=== PATIENT | male | born 1970 | race Caucasian/White ===

== ENCOUNTER 2019-06-14 10:51 | Emergency (ER) | payer SELFPAY ==
[~2019-06-14] VITALS: Ht 175.2 cm; Wt 127.2 kg
[2019-06-14] MEDS ORDERED: LISI10TA2 PO (11:25)
[2019-06-14] MEDS ORDERED: METH-313 PO (11:25)
[2019-06-14] MEDS ORDERED: PRD20T PO (11:25)
--- NOTE | 2019-06-14 11:26 | ED General ---
General Chief Complaint: General Problems/Pain Stated Complaint: PAIN IN SHOULDER/NECK Nursing Triage Note: C/O SINUS PRESSURE FOR 1 WEEK AND PAIN AND LIMITED MOVEMENT IN R ARM. Nursing Sepsis Screen: No Definite Risk Source of Information: Patient Exam Limitations: No Limitations History of Present Illness Date Seen by Provider: Jun 14, 2019 Time Seen by Provider: 11:20 Initial Comments To ER with left neck/shoulder pain for a couple of days, cannot find a comfortable position. Pain worsened with movement of the left arm. He is also very hypertensive and hasn't been taking his antihypertensive medications for quite some time. States he doesn't like doctors or needles and doesn't want any laboratory or other evaluation for this. He also has right sinus congestion for 2 weeks. Timing/Duration: 1-2 Days Severity: Moderate Allergies and Home Medications Allergies Coded Allergies: Penicillins (Verified Allergy, Unknown, 06/14/19) Home Medications Lisinopril 10 Mg Tablet, 10 MG PO DAILY Prescribed by: STEVEN DOMINGO on 06/14/19 1125 Methocarbamol 750 Mg Tablet, 750 MG PO Q4H PRN for PAIN-MODERATE (5-7) Prescribed by: STEVEN DOMINGO on 06/14/19 1125 Prednisone 20 Mg Tab, 40 MG PO DAILY Prescribed by: STEVEN DOMINGO on 06/14/19 1125 Patient Home Medication List Home Medication List Reviewed: Yes Review of Systems Review of Systems Constitutional: see HPI EENTM: see HPI Respiratory: no symptoms reported Cardiovascular: no symptoms reported Genitourinary: no symptoms reported Musculoskeletal: see HPI Skin: no symptoms reported Psychiatric/Neurological: No Symptoms Reported Hematologic/Lymphatic: No Symptoms Reported Immunological/Allergic: no symptoms reported (Vagina this year of the rat starts with) Past Zuwhjvr-Ydyxaq-Qvhowm Hx Patient Social History Alcohol Use: Occasionally Uses Alcohol Beverage of Choice: Beer Recreational Drug Use: No Smoking Status: Never a Smoker Recent Foreign Travel: No Contact w/Someone Who Travel: No Recent Infectious Disease Expo: No Past Medical History Surgeries: Yes (HERNIA) Abdominal Respiratory: No Cardiac: Yes Hypertension Neurological: No Genitourinary: No Gastrointestinal: No Musculoskeletal: No Endocrine: No HEENT: No Cancer: No Psychosocial: No Physical Exam Vital Signs Vital Signs - First Documented 06/14/19 10:58 Temp 37.1 Pulse 91 Resp 18 B/P (MAP) 180/123 (142) Pulse Ox 95 Capillary Refill : Less Than 3 Seconds Height, Weight, BMI Height: '" Weight: lbs. oz. kg; 41.00 BMI Method: General Appearance: No Apparent Distress, WD/WN, Anxious Eyes: Bilateral Eye Normal Inspection, Bilateral Eye PERRL, Bilateral Eye EOMI HEENT: PERRL/EOMI, TMs Normal Neck: Full Range of Motion, Normal Inspection Respiratory: No Accessory Muscle Use, No Respiratory Distress Cardiovascular: Regular Rate, Rhythm, Normal Peripheral Pulses Gastrointestinal: Normal Bowel Sounds, Non Tender, Soft Extremity: Normal Capillary Refill, Normal Inspection Neurologic/Psychiatric: Alert, Oriented x3 Skin: Normal Color, Warm/Dry Progress/Results/Core Measures Suspected Sepsis Recent Fever Within 48 Hours: No Infection Criteria Present: None New/Unexplained Altered Menta: No Sepsis Screen: No Definite Risk SIRS Temperature: Pulse: 91 Respiratory Rate: 18 Blood Pressure 180 /123 Mean: 142 Results/Orders My Orders Orders - STEVEN DOMINGO APRN Clonidine Tablet (Catapres Tablet) (06/14/19 11:30) Naproxen Tablet (Naprosyn Tablet) (06/14/19 11:30) Methocarbamol Tablet (Robaxin Tablet) (06/14/19 11:30) Medications Given in ED Current Medications Medications Dose Ordered Sig/Lito Route Start Time Stop Time Status Last Admin Dose Admin Clonidine HCl 0.1 mg ONCE ONCE PO 06/14/19 11:30 06/14/19 11:31 DC 06/14/19 11:29 0.1 MG Methocarbamol 750 mg ONCE ONCE PO 06/14/19 11:30 06/14/19 11:31 DC 06/14/19 11:30 750 MG Naproxen 500 mg ONCE ONCE PO 06/14/19 11:30 06/14/19 11:31 DC 06/14/19 11:30 500 MG Vital Signs/I&O 06/14/19 06/14/19 10:58 11:35 Temp 37.1 37.1 Pulse 91 91 Resp 18 18 B/P (MAP) 180/123 (142) 180/123 (142) Pulse Ox 95 95 Capillary Refill : Less Than 3 Seconds Blood Pressure Mean: 142 Departure Communication (Admissions) I discussed with him the possibility of this left-sided neck and back pain representing serious etiology including but not limited to cardiac event, aortic injury given the hypertension. He is not interested in evaluation of this with labs or CT scan. Elected to try steroids anti-inflammatory and muscle relaxer. Impression Primary Impression: Left shoulder pain Qualified Codes: M25.512 - Pain in left shoulder Additional Impression: Sinusitis Qualified Codes: J01.01 - Acute recurrent maxillary sinusitis Disposition: HOME, SELF-CARE Condition: Stable Departure-Patient Inst. Decision time for Depature: 11:23 Referrals: NO,LOCAL PHYSICIAN (PCP/Family) Primary Care Physician Patient Instructions: Sinusitis, Adult (DC) Add. Discharge Instructions: 1. Follow-up with one the providers listed. Return to ER for any worsening. Medication as directed. All discharge instructions reviewed with patient and/or family. Voiced understanding. Scripts Naproxen (Naproxen) 500 Mg Tablet 500 MG PO Q12H for Renal Colic for 3 Days, #14 TAB Prov: STEVEN DOMINGO APRN 06/14/19 Doxycycline Hyclate (Doxycycline Hyclate) 100 Mg Tablet 100 MG PO BID, #20 TAB 0 Refills Prov: STEVEN DOMINGO APRN 06/14/19 Prednisone (Prednisone) 20 Mg Tab 40 MG PO DAILY, #6 TAB 0 Refills Prov: STEVEN DOMINGO APRN 06/14/19 Methocarbamol (Robaxin-750) 750 Mg Tablet 750 MG PO Q4H PRN for PAIN-MODERATE (5-7), #30 TAB Prov: STEVEN DOMINGO APRN 06/14/19 Lisinopril (Lisinopril) 10 Mg Tablet 10 MG PO DAILY, #30 TAB Prov: STEVEN DOMINGO APRN 06/14/19 STEVEN DOMINGO APRN Jun 14, 2019 11:26
[2019-06-14] MEDS ORDERED: METHOCARBAMOL 750 MG (ROBAXIN) TAB PO ONE (11:30)
[2019-06-14] MEDS ORDERED: NAPROXEN 250 MG (NAPROSYN) TABLET PO ONE (11:30)
[2019-06-14] MEDS ORDERED: cloNIDine 0.1 MG (CATAPRES) TAB PO ONE (11:30)
[2019-06-14 11:35] VITALS: BP 180/123
--- NOTE | 2019-06-14 11:35 | NUR ---
Tawanna DOMINGO APRN AWARE OF B/P MEDS GIVEN IN ED WITH RX. PATIENT TO BE ON MED FOR HYPERTENSION CHOOSE NOT TO TAKE. PATIENT VOICED UNDERSTANDING NEED TO TAKE MEDS.
[2019-06-14] MEDS ORDERED: NAPR-915 PO (13:38)
[2019-06-14] MEDS ORDERED: DOXY100T2 PO (13:38)
== END 2019-06-14 11:35 | disposition home or self-care (01) ==
LOC: EDUNIT# 10:51 → ER 10:53
DX: M25.512 Pain in left shoulder (principal); J32.9 Chronic sinusitis, unspecified; I10 Essential (primary) hypertension; Z91.14 Patient's other noncompliance with medication regimen; Z88.0 Allergy status to penicillin
CPT/HCPCS: 99283

== ENCOUNTER 2023-03-19 16:50 | Inpatient (IN) | payer SELFPAY ==
[2023-03-19] VITALS (8 sets, daily range): BP systolic 117–170; BP diastolic 66–108
[~2023-03-19] VITALS: Ht 180.4 cm; Wt 106.6 kg
[~2023-03-19 16:50] MED LIST: DOXY100T2 PO; LISI10TA25 PO; METH-313 PO; NAPR-915 PO; PRD20T PO
[2023-03-19] MEDS ORDERED: fentaNYL INJECTION 100 MCG/2 ML VIAL ONE ×3 (17:18→18:40)
[2023-03-19] MEDS ORDERED: NS IV 1000 ML 1,000 ML IV STA (17:21)
--- NOTE | 2023-03-19 17:24 | ED Abdominal Pain ---
General Chief Complaint: Abdominal/GI Problems Stated Complaint: UMBILICAL HERNIA Nursing Triage Note: PT AMB TO RM 5 PT CO OF SEVERE ABD PAIN 10/10. PT HAS FIRM AREA AT UMBILICAL HERNIA. STATES STARTED ABOUT 2 HOURS. Source of Information: Patient Exam Limitations: No Limitations History of Present Illness Date Seen by Provider: Mar 19, 2023 Time Seen by Provider: 17:22 Initial Comments Patient is a 52-year-old male who presents to the ED for severe abdominal pain. Rates pain 10 out of 10. Started 2 hours ago. Pain radiates across the abdomen into the back. Reports nausea without vomiting. Last bowel movement was yesterday. History of an umbilical hernia. He states he is never experienced pain to this extent. History of fundoplication performed by Dr. Ding several years ago. Denies blood thinner use history of diabetes, CHF, coronary artery disease. Patient denies taking thing for pain. Patient in moderate distress on arrival. Patient has a baseball sized umbilical hernia tender with skin color changes. Concern for strangulated hernia Allergies and Home Medications Allergies Coded Allergies: Penicillins (Verified Allergy, Unknown, 06/14/19) Patient Home Medication List Home Medication List Reviewed: Yes Doxycycline Hyclate (Doxycycline Hyclate) 100 Mg Tablet, 100 MG PO BID Prescribed by: STEVEN DOMINGO on 06/14/19 1338 Lisinopril (Lisinopril) 10 Mg Tablet, 10 MG PO DAILY Prescribed by: STEVEN DOMINGO on 06/14/19 1125 Methocarbamol (Robaxin-750) 750 Mg Tablet, 750 MG PO Q4H PRN for PAIN-MODERATE (5-7) Prescribed by: STEVEN DOMINGO on 06/14/19 1125 Naproxen (Naproxen) 500 Mg Tablet, 500 MG PO Q12H Prescribed by: STEVEN DOMINGO on 06/14/19 1338 Prednisone (Prednisone) 20 Mg Tab, 40 MG PO DAILY Prescribed by: STEVEN DOMINGO on 06/14/19 1125 Review of Systems Review of Systems Constitutional: No chills, No diaphoresis, No malaise, No weakness EENTM: No Blurred Vision, No Double Vision, No Eye Pain Cardiovascular: Denies Chest Pain Gastrointestinal: Abdominal Pain; Denies Diarrhea; Nausea Genitourinary: Denies Burning, Denies Discharge, Denies Drainage, Denies Frequency Musculoskeletal: No back pain, No joint pain Skin: No change in color, No change in hair/nails All Other Systems Reviewed Negative Unless Noted: Yes Past Jyxzjqb-Fllyjx-Wvfixa Hx Patient Social History Tobacco Use?: No Substance use?: Yes Substance type: Marijuana Substance frequency: Once in a while Alcohol Use?: Yes Alcohol type: Beer Alcohol Frequency: Once in a while Past Medical History Surgery/Hospitalization HX: HIATAL HERNIA REPAIR, Surgeries: Yes (HERNIA) Abdominal Respiratory: No Cardiac: Yes Hypertension Neurological: No Genitourinary: No Gastrointestinal: No Musculoskeletal: No Endocrine: No HEENT: No Cancer: No Psychosocial: No Physical Exam Vital Signs Vital Signs - First Documented 03/19/23 17:10 Temp 35.5 Pulse 69 Resp 18 B/P (MAP) 173/101 (125) Pulse Ox 99 Capillary Refill : Less Than 3 Seconds Height/Weight/BMI Height: '" Weight: lbs. oz. kg; 41.00 BMI Method: General Appearance: WD/WN, no apparent distress HEENT: PERRL/EOMI, normal ENT inspection, TMs normal Neck: non-tender, full range of motion, supple Respiratory: chest non-tender, lungs clear, normal breath sounds, no respiratory distress, no accessory muscle use Cardiovascular: regular rate, rhythm, no edema, no gallop, no JVD Gastrointestinal: other (Baseball sized umbilical hernia. Skin color changes noted. Severe tenderness on palpation. Diminished bowel sounds) Extremities: normal range of motion, non-tender, normal inspection, no pedal edema Back: normal inspection, no CVA tenderness Neurologic/Psychiatric: socket puller II-XII nml as tested, no motor/sensory deficits, alert, normal mood/affect, oriented x 3 Skin: normal color, warm/dry Progress/Results/Core Measures Results/Orders Lab Results Laboratory Tests Test 03/19/23 17:20 03/19/23 17:32 Range/Units Sodium Level 140 135-145 MMOL/L Potassium Level 3.2 L 3.6-5.0 MMOL/L Chloride Level 107 98-107 MMOL/L Carbon Dioxide Level 21 21-32 MMOL/L Anion Gap 12 5-14 MMOL/L Blood Urea Nitrogen 7 7-18 MG/DL Creatinine 0.75 0.60-1.30 MG/DL Estimat Glomerular Filtration Rate 110 BUN/Creatinine Ratio 9 Glucose Level 115 H 70-105 MG/DL Calcium Level 8.1 L 8.5-10.1 MG/DL Corrected Calcium 8.6 8.5-10.1 MG/DL Total Bilirubin 0.7 0.1-1.0 MG/DL Aspartate Amino Transf (AST/SGOT) 18 5-34 U/L Alanine Aminotransferase (ALT/SGPT) 14 0-55 U/L Alkaline Phosphatase 65 40-136 U/L Total Protein 5.9 L 6.4-8.2 GM/DL Albumin 3.4 3.2-4.5 GM/DL Lipase 33 8-78 U/L White Blood Count 12.0 H 4.3-11.0 10^3/uL Red Blood Count 5.04 4.30-5.52 10^6/uL Hemoglobin 15.7 13.3-17.7 g/dL Hematocrit 47 40-54 % Mean Corpuscular Volume 93 80-99 fL Mean Corpuscular Hemoglobin 31 25-34 pg Mean Corpuscular Hemoglobin Concent 34 32-36 g/dL Red Cell Distribution Width 12.3 10.0-14.5 % Platelet Count 187 130-400 10^3/uL Mean Platelet Volume 9.6 9.0-12.2 fL Immature Granulocyte % (Auto) 0 % Neutrophils (%) (Auto) 80 H 42-75 % Lymphocytes (%) (Auto) 13 12-44 % Monocytes (%) (Auto) 6 0-12 % Eosinophils (%) (Auto) 1 0-10 % Basophils (%) (Auto) 0 0-10 % Neutrophils # (Auto) 9.6 H 1.8-7.8 10^3/uL Lymphocytes # (Auto) 1.6 1.0-4.0 10^3/uL Monocytes # (Auto) 0.7 0.0-1.0 10^3/uL Eosinophils # (Auto) 0.1 0.0-0.3 10^3/uL Basophils # (Auto) 0.0 0.0-0.1 10^3/uL Immature Granulocyte # (Auto) 0.1 0.0-0.1 10^3/uL My Orders Orders - TORSTEN PORTILLO Cbc And Automated Diff (03/19/23 17:16) Comprehensive Metabolic Panel (03/19/23 17:16) Nothing By Mouth (03/19/23 Dinner) Lipase (03/19/23 17:16) Fentanyl Injection (Fentanyl Injection (03/19/23 17:18) Fentanyl Injection (Fentanyl Injection (03/19/23 17:30) Ns Iv 1000 Ml (Ns Iv 1000 Ml) (03/19/23 17:21) Ekg Tracing (03/19/23 17:21) Medications Given in ED Current Medications Medications Dose Ordered Sig/Lito Route Start Time Stop Time Status Last Admin Dose Admin Fentanyl Citrate 50 mcg ONCE ONCE IVP 03/19/23 17:30 03/19/23 17:31 DC 03/19/23 17:23 50 MCG Vital Signs/I&O 03/19/23 17:10 Temp 35.5 Pulse 69 Resp 18 B/P (MAP) 173/101 (125) Pulse Ox 99 Blood Pressure Mean: 125 Comment Sinus rhythm, possible left atrial enlargement, 74 bpm, QRS duration 68 MS, QTc 416 MS. Departure Communication (PCP) History of fundoplication presents to ED for severe mid abdominal pain. Patient has never experienced any type of pain in the past. History of an umbilical hernia. On exam does have a baseball size umbilical hernia. Not able to reduce. Extremely hard with skin color changes. Significant pain on palpation. CBC, CMP was ordered. Received a dose of IV fentanyl. Contacted Dr. Gordon general surgeon who came and evaluate patient. Concern for incarcerated hernia with potential strangulation due to how much pain patient is experiencing. Patient is time sensitive for surgery secondary to potential bowel . This will need to go to the OR and Dr. Gordon agreed. EKG was obtained which did not show any abnormal arrhythmia. Denies blood thinner use, history of diabetes. No known cardiac history or history of COPD or CHF. Currently NPO. Did drink a few sips of water right before arrival. Last time he ate was around 10 AM. Patient will be admitted to the OR. Impression Primary Impression: Incarcerated hernia Disposition: ADMITTED INPATIENT Condition: Stable Admissions Decision to Admit Reason: Admit from ER (General) Decision to Admit/Date: Mar 19, 2023 Time/Decision to Admit Time: 17:31 Departure-Patient Inst. Referrals: NO,LOCAL PHYSICIAN (PCP/Family) Primary Care Physician TORSTEN PORTILLO Mar 19, 2023 17:24
[2023-03-19] MEDS ORDERED: fentaNYL INJECTION 100 MCG/2 ML VIAL IVP ONE (17:30)
[2023-03-19 17:37] LABS: BASOPHILS % (AUTO) 0 % (0-10); EOSINOPHILS # (AUTO) 0.1 10^3/uL (0.0-0.3); EOSINOPHILS % (AUTO) 1 % (0-10); HEMATOCRIT 47 % (40-54); HEMOGLOBIN 15.7 g/dL (13.3-17.7); LYMPHOCYTES # (AUTO) 1.6 10^3/uL (1.0-4.0); LYMPHOCYTES % (AUTO) 13 % (12-44); MEAN CORPUSCULAR HEMOGLOBIN 31 pg (25-34); MEAN CORPUSCULAR HGB CONC 34 g/dL (32-36); MEAN CORPUSCULAR VOLUME 93 fL (80-99); MEAN PLATELET VOLUME 9.6 fL (9.0-12.2); MONOCYTES # (AUTO) 0.7 10^3/uL (0.0-1.0); MONOCYTES % (AUTO) 6 % (0-12); NEUTROPHILS # (AUTO) 9.6 10^3/uL (1.8-7.8); NEUTROPHILS % (AUTO) 80 % (42-75); PLATELET COUNT 187 10^3/uL (130-400)
--- NOTE | 2023-03-19 17:51 | Consultation - Surgery ---
History of Present Illness History of Present Illness Patient Consulted On(faviola/time) 03/19/23 17:45 Date Seen by Provider: Mar 19, 2023 Time Seen by Provider: 17:45 History of Present Illness consult requested for strangulated hernia. 52 year old male with umbilical hernia for many years. It got significantly larger and extremely hard and painful about 2 hours ago. Severe pain 10/10 radiates around abdomen and into back. Movement makes worse. Nothing makes better. Having nausea and emesis. Denies fever sweats chills shortness of breath or chest pain. Allergies and Home Medications Allergies Coded Allergies: Penicillins (Verified Allergy, Unknown, 06/14/19) Patient Home Medication List Home Medication List Reviewed: Yes Doxycycline Hyclate (Doxycycline Hyclate) 100 Mg Tablet, 100 MG PO BID Prescribed by: STEVEN DOMINGO on 06/14/19 1338 Lisinopril (Lisinopril) 10 Mg Tablet, 10 MG PO DAILY Prescribed by: STEVEN DOMINGO on 06/14/19 1125 Methocarbamol (Robaxin-750) 750 Mg Tablet, 750 MG PO Q4H PRN for PAIN-MODERATE (5-7) Prescribed by: STEVEN DOMINGO on 06/14/19 1125 Naproxen (Naproxen) 500 Mg Tablet, 500 MG PO Q12H Prescribed by: STEVEN DOMINGO on 06/14/19 1338 Prednisone (Prednisone) 20 Mg Tab, 40 MG PO DAILY Prescribed by: STEVEN DOMINGO on 06/14/19 1125 Past Tsokxct-Ggxfkk-Tsxmtu Hx Patient Social History Alcohol Use?: Yes Substance type: Marijuana Surgeries History of Surgeries: Yes (HERNIA) Surgeries: Abdominal Respiratory History of Respiratory Disorde: No Cardiovascular History of Cardiac Disorders: Yes Cardiac Disorders: Hypertension Neurological History of Neurological Disord: No Genitourinary History of Genitourinary Disor: No Gastrointestinal History of Gastrointestinal Di: No Musculoskeletal History of Musculoskeletal Dis: No Endocrine History of Endocrine Disorders: No HEENT History of HEENT Disorders: No Cancer History of Cancer: No Psychosocial History of Psychiatric Problem: No Reviewed Nursing Assessment Reviewed/Agree w Nursing PMH: Yes Family Medical History Significant Family History: No Pertinent Family Hx Review of Systems-General Constitutional: No diaphoresis, No fever EENTM: No blurred vision, No double vision Respiratory: No cough, No dyspnea on exertion Cardiovascular: No chest pain, No palpitations Gastrointestinal: abdominal pain, nausea, vomiting Genitourinary: No decreased output, No discharge Musculoskeletal: back pain; No joint pain Skin: No change in color, No change in hair/nails Psychiatric/Neurological: Denies Anxiety, Denies Depressed, Denies Emotional Problems All Other Systems Reviewed Negative Unless Noted: Yes (Negative excepted noted.) Physical Exam-General Problems Physical Exam Vital Signs Vital Signs - First Documented 03/19/23 17:10 Temp 35.5 Pulse 69 Resp 18 B/P (MAP) 173/101 (125) Pulse Ox 99 Capillary Refill : Less Than 3 Seconds General Appearance: WD/WN, moderate distress HEENT: PERRL/EOMI, normal ENT inspection Neck: non-tender, supple Respiratory: chest non-tender, no respiratory distress, no accessory muscle use Cardiovascular: regular rate, rhythm, no JVD Gastrointestinal: soft, tenderness, hernia (incarcerated possible strangulated incisional hernia at umbilicus) Rectal: deferred Back: normal inspection, no CVA tenderness Extremities: non-tender, normal inspection Neurologic/Psychiatric: alert, normal mood/affect, oriented x 3 Skin: normal color, warm/dry Lymphatic: no adenopathy Data Review Labs Laboratory Tests 03/19/23 17:20: 03/19/23 17:32: White Blood Count 12.0H, Red Blood Count 5.04, Hemoglobin 15.7, Hematocrit 47, Mean Corpuscular Volume 93, Mean Corpuscular Hemoglobin 31, Mean Corpuscular Hemoglobin Concent 34, Red Cell Distribution Width 12.3, Platelet Count 187, Mean Platelet Volume 9.6, Immature Granulocyte % (Auto) 0, Neutrophils (%) (Auto) 80H, Lymphocytes (%) (Auto) 13, Monocytes (%) (Auto) 6, Eosinophils (%) (Auto) 1, Basophils (%) (Auto) 0, Neutrophils # (Auto) 9.6H, Lymphocytes # (Auto) 1.6, Monocytes # (Auto) 0.7, Eosinophils # (Auto) 0.1, Basophils # (Auto) 0.0, Immature Granulocyte # (Auto) 0.1 Assessment/Plan Assessment/Plan Assessment/Plan incarcerated possible strangulated incisional hernia periumbilical abdominal pain nausea and vomiting. Patient understands risks and benefits of possible robotic or laparoscopic incisional hernia repair possibility of strangulated hernia with omental fat or bowel. He wishes to proceed. To or NPO Pain medication consent JAMIE LOPEZ DO Mar 19, 2023 17:51
[2023-03-19] MEDS ORDERED: CLINDAMYCIN 600 MG/50 ML IVPB 50 ML IV ONE (18:00)
[2023-03-19 18:04] LABS: ALBUMIN 3.4 GM/DL (3.2-4.5)
[2023-03-19 18:05] LABS: POTASSIUM 3.2 MMOL/L (3.6-5.0)
[2023-03-19 18:06] LABS: CALCIUM 8.1 MG/DL (8.5-10.1)
[2023-03-19 18:07] LABS: TOTAL PROTEIN 5.9 GM/DL (6.4-8.2)
[2023-03-19 18:09] LABS: BILIRUBIN,TOTAL 0.7 MG/DL (0.1-1.0)
[2023-03-19 18:11] LABS: CREATININE SERUM 0.75 MG/DL (0.60-1.30)
[2023-03-19] MEDS ORDERED: SUCCINYLCHOLINE INJ 20 MG/1 ML 10 ML VIAL ONE (18:40)
[2023-03-19] MEDS ORDERED: ONDANSETRON INJECTION 4 MG/2 ML (SDV) ONE (18:40)
[2023-03-19] MEDS ORDERED: dexAMETHasone INJ 10 MG/ML 1 ML VIAL ONE (18:40)
[2023-03-19] MEDS ORDERED: MIDAZOLAM INJ 2 MG/2 ML VIAL ONE (18:40)
[2023-03-19] MEDS ORDERED: LIDOCAINE PF 2% 5 ML VIAL ONE (18:40)
[2023-03-19] MEDS ORDERED: ROCURONIUM 50 MG/5 ML VIAL IV ONE (18:40)
[2023-03-19] MEDS ORDERED: proPOfol INJECTION 200 MG/20 ML VIAL IV ONE (18:40)
[2023-03-19] MEDS ORDERED: LIDOCAINE 2% w/EPI 1:100,000 20 ML VIAL ONE (19:13)
[2023-03-19] MEDS ORDERED: LIDOCAINE 2% w/EPI 1:100,000 20 ML VIAL INJ ONE (19:56)
[2023-03-19] MEDS ORDERED: GLYCOPYRROLATE INJ 0.2 MG/ML 2 ML VIAL ONE (20:14)
[2023-03-19] MEDS ORDERED: NEOSTIGMINE 1 MG/1ML 10 ML VIAL ONE (20:14)
[2023-03-19] MEDS ORDERED: SEVOFLURANE (ULTANE) 15 ML INHAL SOLN ONE (20:21)
--- NOTE | 2023-03-19 20:44 | Progress Note-Post Operative ---
Post-Operative Progess Note Surgeon (s)/Crop Specialist (s) Surgeon JAMIE LOPEZ DO Crop Specialist: na Pre-Operative Diagnosis incarcerated possible strangulated incisional hernia Post-Operative Diagnosis strangulated incisional hernia containing small bowel Procedure & Operative Findings Date of Procedure 03/19/23 Procedure Performed/Findings diagnostic laparoscopy to open strangulated incisional hernia repair (primary) and small bowel resection with side to side anastamosis Anesthesia Type general Estimated Blood Loss Estimated blood loss (mL): minimal Specimens/Packing Specimens Removed small bowel JAMIE LOPEZ DO Mar 19, 2023 20:44
[2023-03-19] MEDS ORDERED: morphine INJ 10 MG/ML 1ML (SYR OR VIAL) IVP ONE (20:45)
[2023-03-19] MEDS ORDERED: PROMETHAZINE INJ 25 MG/ML VIAL IVP ONE (20:45)
[2023-03-19] MEDS ORDERED: HYDROmorphone INJECTION 2 MG/ML VIAL IV ONE (20:45)
[2023-03-19] MEDS ORDERED: MEPERIDINE INJ 50 MG/ML VIAL IVP ONE (20:45)
[2023-03-19] MEDS ORDERED: ONDANSETRON INJECTION 4 MG/2 ML (SDV) IVP PRN ×2 (20:45)
[2023-03-19] MEDS ORDERED: morphine INJ 10 MG/ML 1ML (SYR OR VIAL) ONE (20:52)
[2023-03-19] MEDS: LACTATED RINGERS 1,000 ML 1,000 ML IV SCH (20:55)
[2023-03-19] MEDS: HYDROcodone/ACETAMINOPHEN 5 MG/325 MG TABLET PO PRN (21:47)
[2023-03-19] MEDS: metroNIDAZOLE 500MG/100ML IVPB 100 ML IV SCH (21:50)
[2023-03-19] MEDS ORDERED: CLINDAMYCIN 600 MG/50 ML IVPB 50 ML IV SCH (22:00)
[2023-03-19] MEDS: morphine INJ 4 MG/ML 1 ML (VIAL/SYRINGE) IVP PRN (22:54)
[2023-03-20] MEDS: morphine INJ 4 MG/ML 1 ML (VIAL/SYRINGE) IVP PRN ×7 (01:16→20:46)
[2023-03-20] MEDS: CLINDAMYCIN 600 MG/50 ML IVPB 50 ML IV SCH ×2 (03:08→11:13)
[2023-03-20] MEDS: LACTATED RINGERS 1,000 ML 1,000 ML IV SCH ×3 (03:09→20:45)
[2023-03-20 03:38] VITALS: BP 103/67
--- NOTE | 2023-03-20 03:47 | OPERATIVE REPORT ---
DATE OF SERVICE: 03/19/2023 PREOPERATIVE DIAGNOSIS: Incarcerated, possible strangulated incisional hernia. POSTOPERATIVE DIAGNOSIS: Strangulated incisional hernia containing small bowel. PROCEDURE: Diagnostic to open strangulated incisional hernia repair with primary closure and small bowel resection. SURGEON: Eduardo Gordon DO ANESTHESIA: General. ESTIMATED BLOOD LOSS: Minimal. COMPLICATIONS: None. INDICATIONS: The patient is a 52-year-old male who presented with severe pain with incisional hernia. This was incarcerated and possibly strangulated. We discussed risks and benefits of emergently going to the operating room, which he understands risks and benefits and wishes to proceed. Consent was signed in chart. DESCRIPTION OF PROCEDURE: The patient was taken to the operating suite where he was prepped and draped in sterile fashion. Timeout was performed. Local anesthetic was infiltrated in the left upper quadrant. An 11 blade scalpel was used to make a skin incision and cautery dissected down to the fascia, which was then scored. The muscle was then bluntly divided and the posterior sheath was then opened and a su trocar was inserted. Pneumoperitoneum was achieved. The scope was then inserted, noting small bowel going up into hernia defect, which was then able to be reduced therefore midline incision was then made, which the incision was made through the hernia, which had portion of bowel present. The overall defect was greater than 3 cm. The bowel was able to be brought up and was not viable. Therefore, the small bowel distal and proximal to the area of necrosis was dissected around and a fzgi-nv-oari anastomosis was created using a linear SEAN stapler in [place] 2 step fashion. The mesentery was divided using hemostats and tied off with 2-0 silk sutures. A crotch stitch was placed as well in anastomosis. The mesenteric defect was closed using 2-0 silk suture. Specimen was obtained, which was small bowel, which would have been jejunum. The hernia sac was then dissected out and removed. The fascia was then closed using 1-0 looped PDS. The abdomen was then reinspected and no other pathology noted. The wound was then irrigated with copious amounts of irrigation. Skin was then closed with akanksha and the 12 mm fascial defect was then closed with 0 Vicryl in a figure-of-8 fashion. The skin was then closed with akanksha. The abdomen was washed and dried. Sterile bandages were applied. The patient tolerated the procedure well without any complications, taken to recovery room in stable condition. Job ID: [id number] DocumentID: [id number] Dictated Date: 03/19/2023 22:17:27 Produce Manager Date: 03/20/2023 03:45:00 Dictated By: DO SREE ROMERO
[2023-03-20] MEDS: HYDROcodone/ACETAMINOPHEN 5 MG/325 MG TABLET PO PRN ×3 (05:39→23:07)
[2023-03-20] MEDS: metroNIDAZOLE 500MG/100ML IVPB 100 ML IV SCH (05:40)
[2023-03-20 07:42] VITALS: BP 109/68
[2023-03-20] MEDS: FAMOTIDINE INJ 20MG/2ML VIAL IVP SCH (09:07)
[2023-03-20 12:05] VITALS: BP 116/69
--- NOTE | 2023-03-20 12:29 | Progress Note - Surgery ---
ANDRIY DANIELS 03/20/23 1229: Subjective Date Seen by a Provider: Mar 20, 2023 Time Seen by a Provider: 11:40 Subjective/Events-last exam Pt reports that he is feeling better, but having some RUQ abdominal pain that's worse with breathing and movement. Surgical sites are clean, no erythema, no pus. Per nurse, pt has been up and walking around. No flatus or bowel movements yet. Having some nausea, but no vomiting. Denies SOA, cough, fever, chills, chest pain, dysuria. Review of Systems General: No Chills, No Night Sweats HEENT: No Head Aches, No Sinus Congestion Pulmonary: No Dyspnea, No Cough Cardiovascular: No: Chest Pain, Palpitations Gastrointestinal: Nausea, Abdominal Pain; No: Vomiting Genitourinary: No Dysuria, No Incontinence Musculoskeletal: shoulder pain; No: back pain Neurological: No: Weakness, Numbness Objective Exam Vital Signs Date Time Temp Pulse Resp B/P (MAP) Pulse Ox O2 Delivery O2 Flow Rate FiO2 03/20/23 08:00 92 Room Air 0.00 03/20/23 07:42 37.2 79 18 109/68 (82) 92 Room Air 03/20/23 07:15 94 Room Air 0.00 03/20/23 07:14 98 Nasal Cannula 2.00 03/20/23 03:38 36.8 74 20 103/67 (79) Nasal Cannula 2.00 03/19/23 23:30 36.7 85 20 117/66 (83) 96 Nasal Cannula 2.00 03/19/23 21:40 Nasal Cannula 2.00 03/19/23 21:37 36.7 64 20 163/108 (126) 96 Nasal Cannula 2.00 03/19/23 21:20 Nasal Cannula 2.00 03/19/23 21:10 36.8 17 161/101 (121) 93 Room Air 03/19/23 21:00 OxyMask 2.00 03/19/23 21:00 15 158/105 (122) 97 OxyMask 2.00 03/19/23 20:50 16 170/96 (120) 97 OxyMask 4.00 03/19/23 20:45 14 162/101 (121) 99 OxyMask 6.00 03/19/23 20:45 OxyMask 6.00 03/19/23 20:40 14 165/107 (126) 97 OxyMask 6.00 03/19/23 20:29 37.0 20 149/98 (115) 99 OxyMask 6.00 03/19/23 20:29 OxyMask 6.00 03/19/23 18:45 69 18 186/121 99 03/19/23 17:10 35.5 69 18 173/101 (125) 99 I & O 03/20/23 07:00 Intake Total 1400 ml Output Total 500 ml Balance 900 ml Capillary Refill : Less Than 3 Seconds General Appearance: No Apparent Distress, WD/WN HEENT: PERRL/EOMI, Moist Mucous Membranes Neck: Full Range of Motion, Non Tender Respiratory: Chest Non Tender, Lungs Clear, No Respiratory Distress Cardiovascular: Regular Rate, Rhythm, No Edema Peripheral Pulses: 2+ Dorsalis Pedis (R), 2+ Left Dors-Pedis (L), 2+ Radial Pulses (R), 2+ Radial Pulses (L) Gastrointestinal: no organomegaly, abnormal bowel sounds (hypoactive), tenderness (RUQ. Midline and LUQ surgical ), other (surgical sites present midline and LUQ. No erythema or pus present.) Extremity: Normal Capillary Refill, Non Tender Neurologic/Psychiatric: Alert, Oriented x3, No Motor/Sensory Deficits Skin: Normal Color, Warm/Dry Results Lab Laboratory Tests 03/19/23 17:20: Sodium Level 140, Potassium Level 3.2L, Chloride Level 107, Carbon Dioxide Level 21, Anion Gap 12, Blood Urea Nitrogen 7, Creatinine 0.75, Estimat Glomerular Filtration Rate 110, BUN/Creatinine Ratio 9, Glucose Level 115H, Calcium Level 8.1L, Corrected Calcium 8.6, Total Bilirubin 0.7, Aspartate Amino Transf (AST/SGOT) 18, Alanine Aminotransferase (ALT/SGPT) 14, Alkaline Phosphatase 65, Total Protein 5.9L, Albumin 3.4, Lipase 33 03/19/23 17:32: White Blood Count 12.0H, Red Blood Count 5.04, Hemoglobin 15.7, Hematocrit 47, Mean Corpuscular Volume 93, Mean Corpuscular Hemoglobin 31, Mean Corpuscular Hemoglobin Concent 34, Red Cell Distribution Width 12.3, Platelet Count 187, Mean Platelet Volume 9.6, Immature Granulocyte % (Auto) 0, Neutrophils (%) (Auto) 80H, Lymphocytes (%) (Auto) 13, Monocytes (%) (Auto) 6, Eosinophils (%) (Auto) 1, Basophils (%) (Auto) 0, Neutrophils # (Auto) 9.6H, Lymphocytes # (Auto) 1.6, Monocytes # (Auto) 0.7, Eosinophils # (Auto) 0.1, Basophils # (Auto) 0.0, Immature Granulocyte # (Auto) 0.1 Assessment/Plan Assessment/Plan Assessment/Plan incarcerated possible strangulated incisional hernia periumbilical abdominal pain nausea and vomiting. Patient understands risks and benefits of possible robotic or laparoscopic incisional hernia repair possibility of strangulated hernia with omental fat or bowel. He wishes to proceed. To or NPO Pain medication Ambulate as much as possible Use spirometer Zofran PRN consent JAMIE GORDON DO 03/20/23 1618: Subjective Subjective/Events-last exam Pain better than yesterday. Some ruq abdominal pain. Worse with movement. Ambulating and using IS some. No flatus or bowel function. Tolerating ice chips. Denies n/v fever sweats chills shortness of breath or chest pain. Objective Exam General Appearance: No Apparent Distress, WD/WN HEENT: PERRL/EOMI, Moist Mucous Membranes Neck: Full Range of Motion, Non Tender Respiratory: Chest Non Tender, No Accessory Muscle Use, No Respiratory Distress Cardiovascular: Regular Rate, Rhythm, No JVD Gastrointestinal: soft, tenderness (incisional pain, incisions are c/d/i no signs of infection) Extremity: Normal Capillary Refill, Non Tender Neurologic/Psychiatric: Alert, Oriented x3, No Motor/Sensory Deficits Skin: Normal Color, Warm/Dry Lymphatic: No Adenopathy Assessment/Plan Assessment/Plan Assessment/Plan incarcerated possible strangulated incisional hernia strangulated incisional hernia containing small bowel s/p lap to open strangulated incisional hernia primary repair with small bowel resection periumbilical abdominal pain nausea and vomiting. Ice chips Iv fluids Pain medication Ambulate as much as possible Use incentive spirometer Zofran PRN SCD's and ambulation for dvt prophylaxis pepcid gi prophylaxis repeat labs in am once bowel function returns advance diet Supervisory-Addendum Brief Verification & Attestation Participated in pt care: history, MDM, physical Personally performed: exam, history, MDM, supervision of care Care discussed with: Medical Student Procedures: n/a Results interpretation: Verified all documentation Verification and Attestation of Medical Student E/M Service A medical student performed and documented this service in my presence. I reviewed and verified all information documented by the medical student and made modifications to such information, when appropriate. I personally performed the physical exam and medical decision making. Jamie Gordon, Mar 20, 2023,16:18 ANDRIY DANIELS Mar 20, 2023 12:29 JAMIE GORDON DO Mar 20, 2023 16:18
--- NOTE | 2023-03-20 14:19 | Anesthesia-General Post-Op ---
General Patient Condition Mental Status/LOC: Same as Preop Cardiovascular: Satisfactory Nausea/Vomiting: Absent Respiratory: Satisfactory Pain: Controlled Complications: Absent Post Op Complications Complications None Follow Up Care/Instructions Patient Instructions None needed. Anesthesia/Patient Condition Patient Condition Patient is doing well, no complaints, stable vital signs, no apparent adverse anesthesia problems. No complications reported per nursing. CLEVE PANDEY DO Mar 20, 2023 14:19
[2023-03-20 16:22] VITALS: BP 128/79
[2023-03-20 19:38] VITALS: BP 134/83
[2023-03-20 23:22] VITALS: BP 126/73
[2023-03-21] MEDS: morphine INJ 4 MG/ML 1 ML (VIAL/SYRINGE) IVP PRN ×9 (01:02→22:55)
[2023-03-21 04:00] VITALS: BP 131/82
[2023-03-21] MEDS ORDERED: KETOROLAC INJ 15 MG/ML VIAL IVP ONE (05:30)
[2023-03-21] MEDS ORDERED: KETOROLAC INJ 30 MG/ML VIAL ONE (05:34)
[2023-03-21 05:40] LABS: HEMATOCRIT 35 % (40-54); HEMOGLOBIN 11.4 g/dL (13.3-17.7); MEAN CORPUSCULAR HEMOGLOBIN 31 pg (25-34); MEAN CORPUSCULAR HGB CONC 33 g/dL (32-36); MEAN CORPUSCULAR VOLUME 95 fL (80-99); MEAN PLATELET VOLUME 10.2 fL (9.0-12.2); PLATELET COUNT 165 10^3/uL (130-400); WHITE BLOOD COUNT 11.2 10^3/uL (4.3-11.0)
[2023-03-21 05:41] LABS: POTASSIUM 3.5 MMOL/L (3.6-5.0)
[2023-03-21 05:42] LABS: CALCIUM 8.1 MG/DL (8.5-10.1)
[2023-03-21 05:47] LABS: CREATININE SERUM 0.74 MG/DL (0.60-1.30)
[2023-03-21 05:49] LABS: MAGNESIUM 1.8 MG/DL (1.6-2.4)
[2023-03-21] MEDS: LACTATED RINGERS 1,000 ML 1,000 ML IV SCH ×3 (06:27→20:08)
[2023-03-21 07:40] VITALS: BP 119/78
--- NOTE | 2023-03-21 08:19 | Progress Note - Surgery ---
Subjective Date Seen by a Provider: Mar 21, 2023 Time Seen by a Provider: 08:19 Subjective/Events-last exam Had some pain last night, Toradol helped. No bowel function yet. Tolerating ice chips. Denies n/v fever sweats chills shortness of breath or chest pain. Objective Exam Vital Signs Date Time Temp Pulse Resp B/P (MAP) Pulse Ox O2 Delivery O2 Flow Rate FiO2 03/21/23 07:40 37.0 81 16 119/78 (92) 93 Room Air 03/21/23 04:00 36.2 79 18 131/82 (98) 96 Room Air 03/20/23 23:22 37.7 80 18 126/73 (90) 91 Room Air 03/20/23 20:53 Room Air 03/20/23 19:38 37.2 86 16 134/83 (100) 91 Room Air 03/20/23 16:22 36.8 86 17 128/79 (95) 92 Room Air 03/20/23 12:05 37.3 69 18 116/69 (85) 94 Room Air I & O 03/21/23 07:00 Intake Total 2350 ml Output Total 2150 ml Balance 200 ml Capillary Refill : Less Than 3 Seconds General Appearance: No Apparent Distress, WD/WN HEENT: PERRL/EOMI, Moist Mucous Membranes Neck: Full Range of Motion, Non Tender Respiratory: Chest Non Tender, No Accessory Muscle Use, No Respiratory Distress Cardiovascular: Regular Rate, Rhythm, No JVD Peripheral Pulses: 2+ Dorsalis Pedis (R), 2+ Left Dors-Pedis (L), 2+ Radial Pulses (R), 2+ Radial Pulses (L) Gastrointestinal: soft, tenderness (incisional pain, incisions are c/d/i no signs of infection) Extremity: Normal Capillary Refill, Non Tender Neurologic/Psychiatric: Alert, Oriented x3, No Motor/Sensory Deficits Skin: Normal Color, Warm/Dry Lymphatic: No Adenopathy Results Lab Laboratory Tests 03/21/23 04:47: White Blood Count 11.2H, Red Blood Count 3.68L, Hemoglobin 11.4#L, Hematocrit 35L, Mean Corpuscular Volume 95, Mean Corpuscular Hemoglobin 31, Mean Corpuscular Hemoglobin Concent 33, Red Cell Distribution Width 12.6, Platelet Count 165, Mean Platelet Volume 10.2, Sodium Level 139, Potassium Level 3.5L, Chloride Level 105, Carbon Dioxide Level 25, Anion Gap 9, Blood Urea Nitrogen 8, Creatinine 0.74, Estimat Glomerular Filtration Rate 110, BUN/Creatinine Ratio 11, Glucose Level 92, Calcium Level 8.1L, Magnesium Level 1.8 Assessment/Plan Assessment/Plan Assessment/Plan incarcerated possible strangulated incisional hernia strangulated incisional hernia containing small bowel s/p lap to open strangulated incisional hernia primary repair with small bowel resection periumbilical abdominal pain nausea and vomiting. start clears, for flavor, tolerating ice chips Iv fluids Pain medication Ambulate as much as possible Use incentive spirometer Zofran PRN SCD's and ambulation for dvt prophylaxis pepcid gi prophylaxis will start lovenox JAMIE LOPEZ DO Mar 21, 2023 08:19
[2023-03-21] MEDS: HYDROcodone/ACETAMINOPHEN 5 MG/325 MG TABLET PO PRN ×3 (09:45→18:45)
[2023-03-21] MEDS: FAMOTIDINE INJ 20MG/2ML VIAL IVP SCH (09:46)
[2023-03-21] MEDS: ENOXAPARIN 40 MG/0.4 ML SYRINGE SC SCH (10:25)
[2023-03-21 12:23] VITALS: BP 111/72
[2023-03-21 16:22] VITALS: BP 121/69
[2023-03-21 20:16] VITALS: BP 120/76
[2023-03-21 23:29] VITALS: BP 123/79
[2023-03-22] MEDS: HYDROcodone/ACETAMINOPHEN 5 MG/325 MG TABLET PO PRN ×6 (00:54→21:13)
[2023-03-22] MEDS: morphine INJ 4 MG/ML 1 ML (VIAL/SYRINGE) IVP PRN ×7 (00:55→23:50)
[2023-03-22 03:17] VITALS: BP 121/81
[2023-03-22] MEDS: LACTATED RINGERS 1,000 ML 1,000 ML IV SCH ×3 (03:17→21:11)
[2023-03-22] MEDS: ENOXAPARIN 40 MG/0.4 ML SYRINGE SC SCH (07:44)
[2023-03-22] MEDS: FAMOTIDINE INJ 20MG/2ML VIAL IVP SCH (07:45)
--- NOTE | 2023-03-22 08:23 | Progress Note - Surgery ---
Subjective Date Seen by a Provider: Mar 22, 2023 Time Seen by a Provider: 08:23 Subjective/Events-last exam Pain controlled. Taking some clears. Slight nausea. Feels gas moving. No flatus or bm. Ambulating. Using IS. Denies fever sweats chills shortness of breath or chest pain. Objective Exam Vital Signs Date Time Temp Pulse Resp B/P (MAP) Pulse Ox O2 Delivery O2 Flow Rate FiO2 03/22/23 03:17 37.0 90 18 121/81 (94) 94 Room Air 03/21/23 23:29 37.1 92 18 123/79 (94) 92 Room Air 03/21/23 20:21 Room Air 03/21/23 20:16 37.2 89 19 120/76 (91) 93 Room Air 03/21/23 16:22 36.9 109 17 121/69 (86) 93 Room Air 03/21/23 12:23 36.7 85 16 111/72 (85) 92 Room Air I & O 03/22/23 07:00 Intake Total 840 ml Output Total 1300 ml Balance -460 ml Capillary Refill : Less Than 3 Seconds General Appearance: No Apparent Distress, WD/WN HEENT: PERRL/EOMI, Moist Mucous Membranes Neck: Full Range of Motion, Non Tender Respiratory: Chest Non Tender, No Accessory Muscle Use, No Respiratory Distress Cardiovascular: Regular Rate, Rhythm, No JVD Peripheral Pulses: 2+ Dorsalis Pedis (R), 2+ Left Dors-Pedis (L), 2+ Radial Pulses (R), 2+ Radial Pulses (L) Gastrointestinal: soft, tenderness (incisional pain, incisions are c/d/i no signs of infection) Extremity: Normal Capillary Refill, Non Tender Neurologic/Psychiatric: Alert, Oriented x3, No Motor/Sensory Deficits Skin: Normal Color, Warm/Dry Lymphatic: No Adenopathy Assessment/Plan Assessment/Plan Assessment/Plan incarcerated possible strangulated incisional hernia strangulated incisional hernia containing small bowel s/p lap to open strangulated incisional hernia primary repair with small bowel resection periumbilical abdominal pain nausea and vomiting. clears, for flavor, tolerating ice chips Iv fluids Pain medication Ambulate as much as possible Use incentive spirometer Zofran PRN SCD's and ambulation for dvt prophylaxis pepcid gi prophylaxis lovenox labs in am JAMIE LOPEZ DO Mar 22, 2023 08:23
[2023-03-22 08:30] VITALS: BP 123/73
[2023-03-22] MEDS ORDERED: KETOROLAC INJ 30 MG/ML VIAL IVP NR (10:00)
[2023-03-22 12:31] VITALS: BP 125/81
[2023-03-22 15:51] VITALS: BP 123/78
[2023-03-22 20:20] VITALS: BP 116/73
[2023-03-22 23:52] VITALS: BP 128/76
[2023-03-23] MEDS: morphine INJ 4 MG/ML 1 ML (VIAL/SYRINGE) IVP PRN ×7 (02:41→23:45)
[2023-03-23 03:59] VITALS: BP 144/82
[2023-03-23] MEDS: LACTATED RINGERS 1,000 ML 1,000 ML IV SCH ×4 (04:45→20:56)
[2023-03-23] MEDS: HYDROcodone/ACETAMINOPHEN 5 MG/325 MG TABLET PO PRN ×5 (05:07→23:45)
[2023-03-23 05:46] LABS: HEMATOCRIT 34 % (40-54); HEMOGLOBIN 11.4 g/dL (13.3-17.7); MEAN CORPUSCULAR HEMOGLOBIN 31 pg (25-34); MEAN CORPUSCULAR HGB CONC 34 g/dL (32-36); MEAN CORPUSCULAR VOLUME 93 fL (80-99); MEAN PLATELET VOLUME 10.1 fL (9.0-12.2); PLATELET COUNT 167 10^3/uL (130-400); WHITE BLOOD COUNT 8.5 10^3/uL (4.3-11.0)
[2023-03-23 06:12] LABS: CALCIUM 8.4 MG/DL (8.5-10.1); CREATININE SERUM 0.63 MG/DL (0.60-1.30); MAGNESIUM 1.6 MG/DL (1.6-2.4); POTASSIUM 3.7 MMOL/L (3.6-5.0)
[2023-03-23] MEDS: ENOXAPARIN 40 MG/0.4 ML SYRINGE SC SCH (07:56)
[2023-03-23] MEDS: FAMOTIDINE INJ 20MG/2ML VIAL IVP SCH (07:56)
[2023-03-23 07:59] VITALS: BP 142/90
--- NOTE | 2023-03-23 11:32 | Progress Note - Surgery ---
ANDRIY DANIELS 03/23/23 1132: Subjective Date Seen by a Provider: Mar 23, 2023 Time Seen by a Provider: 10:30 Subjective/Events-last exam Patient s/p bowel resection last week. He isn't feeling great this morning mostly secondary to pain, but he had just received pain medications prior to me seeing him. Overall he feels he is improving. He denies nausea, vomiting, chest pain, SOB. He is ambulating regularly. He denies any bowel movements but has had some flatus yesterday morning. Review of Systems Pulmonary: No Dyspnea Cardiovascular: No: Chest Pain Gastrointestinal: Abdominal Pain; No: Nausea, Vomiting Genitourinary: No Dysuria, No Incontinence Objective Exam Vital Signs Date Time Temp Pulse Resp B/P (MAP) Pulse Ox O2 Delivery O2 Flow Rate FiO2 03/23/23 07:59 36.9 95 20 142/90 (107) 95 Room Air 03/23/23 03:59 36.6 98 18 144/82 (102) 93 Room Air 03/22/23 23:52 36.8 90 18 128/76 (93) 92 Room Air 03/22/23 20:20 37.8 95 17 116/73 (87) 93 Room Air 03/22/23 20:00 Room Air 03/22/23 15:51 37.2 92 17 123/78 (93) 96 Room Air 03/22/23 12:31 36.7 91 16 125/81 (96) 95 Room Air I & O 03/23/23 07:00 Intake Total 1420 ml Output Total 1050 ml Balance 370 ml Capillary Refill : Less Than 3 Seconds General Appearance: No Apparent Distress, WD/WN HEENT: PERRL/EOMI, Moist Mucous Membranes Neck: Full Range of Motion, Non Tender Respiratory: Chest Non Tender, No Accessory Muscle Use, No Respiratory Distress Cardiovascular: Regular Rate, Rhythm, No JVD Peripheral Pulses: 2+ Dorsalis Pedis (R), 2+ Left Dors-Pedis (L), 2+ Radial Pulses (R), 2+ Radial Pulses (L) Gastrointestinal: soft, tenderness (pain localized to incision, incision appears to be healing well, intact, no drainage) Extremity: Normal Capillary Refill, Non Tender Neurologic/Psychiatric: Alert, Oriented x3, No Motor/Sensory Deficits Skin: Normal Color, Warm/Dry Lymphatic: No Adenopathy Results Lab Laboratory Tests 03/23/23 05:30: White Blood Count 8.5, Red Blood Count 3.64L, Hemoglobin 11.4L, Hematocrit 34L, Mean Corpuscular Volume 93, Mean Corpuscular Hemoglobin 31, Mean Corpuscular Hemoglobin Concent 34, Red Cell Distribution Width 12.3, Platelet Count 167, Mean Platelet Volume 10.1, Sodium Level 138, Potassium Level 3.7, Chloride Level 103, Carbon Dioxide Level 25, Anion Gap 10, Blood Urea Nitrogen 7, Creatinine 0.63, Estimat Glomerular Filtration Rate 116, BUN/Creatinine Ratio 11, Glucose Level 88, Calcium Level 8.4L, Magnesium Level 1.6 Assessment/Plan Assessment/Plan Assessment/Plan incarcerated possible strangulated incisional hernia strangulated incisional hernia containing small bowel s/p lap to open strangulated incisional hernia primary repair with small bowel resection periumbilical abdominal pain nausea and vomiting. clears, for flavor, tolerating ice chips Iv fluids Pain medication Ambulate as much as possible Use incentive spirometer Zofran PRN SCD's and ambulation for dvt prophylaxis pepcid gi prophylaxis lovenox labs in am JAMIE GORDON DO 03/23/23 1337: Subjective Subjective/Events-last exam Having some pain. Mostly controlled though. Having some flatus yesterday. Tolerating clears, not wanting anything more yet. Denies fever sweats chills shortness of breath or chest pain at this time. Objective Exam General Appearance: No Apparent Distress, WD/WN HEENT: PERRL/EOMI, Normal ENT Inspection Neck: Full Range of Motion Respiratory: Chest Non Tender, No Accessory Muscle Use, No Respiratory Distress Cardiovascular: Regular Rate, Rhythm, No JVD Gastrointestinal: soft, tenderness (pain localized to incision, incision appears to be healing well, intact, no drainage, no signs of infectino) Extremity: Normal Capillary Refill, Non Tender Neurologic/Psychiatric: Alert, Oriented x3 Skin: Normal Color, Warm/Dry Lymphatic: No Adenopathy Assessment/Plan Assessment/Plan Assessment/Plan incarcerated possible strangulated incisional hernia strangulated incisional hernia containing small bowel s/p lap to open strangulated incisional hernia primary repair with small bowel resection periumbilical abdominal pain nausea and vomiting. clears, for flavor, tolerating ice chips likely advance tomorrow, patient not wanting to yet Iv fluids Pain medication Ambulate as much as possible Use incentive spirometer Zofran PRN SCD's and ambulation for dvt prophylaxis pepcid gi prophylaxis lovenox Supervisory-Addendum Brief Verification & Attestation Participated in pt care: history, MDM, physical Personally performed: exam, history, MDM, supervision of care Care discussed with: Medical Student Procedures: n/a Results interpretation: Verified all documentation Verification and Attestation of Medical Student E/M Service A medical student performed and documented this service in my presence. I reviewed and verified all information documented by the medical student and made modifications to such information, when appropriate. I personally performed the physical exam and medical decision making. Jamie Gordon, Mar 23, 2023,13:37 ANDRIY DANIELS Mar 23, 2023 11:32 JAMIE GORDON DO Mar 23, 2023 13:37
[2023-03-23] MEDS ORDERED: ASCO500T17 PO (11:48)
[2023-03-23] MEDS ORDERED: MAGN250T13 PO (11:49)
[2023-03-23] MEDS ORDERED: CYAN-41 PO (11:49)
[2023-03-23] MEDS ORDERED: CHOL-34 PO (11:49)
[2023-03-23] MEDS ORDERED: ZINC50TA51 PO (11:50)
[2023-03-23 12:00] VITALS: BP 134/75
[2023-03-23 16:07] VITALS: BP 147/89
[2023-03-23 19:49] VITALS: BP 125/84
[2023-03-23 23:39] VITALS: BP 144/85
[2023-03-24] MEDS: morphine INJ 4 MG/ML 1 ML (VIAL/SYRINGE) IVP PRN ×4 (02:57→18:40)
[2023-03-24 03:01] VITALS: BP 140/82
[2023-03-24] MEDS: HYDROcodone/ACETAMINOPHEN 5 MG/325 MG TABLET PO PRN ×4 (05:30→22:49)
[2023-03-24 07:36] VITALS: BP 145/91
[2023-03-24] MEDS: FAMOTIDINE INJ 20MG/2ML VIAL IVP SCH (07:46)
--- NOTE | 2023-03-24 08:21 | Progress Note - Surgery ---
ANDRIY DANIELS 03/24/23 0821: Subjective Date Seen by a Provider: Mar 24, 2023 Time Seen by a Provider: 07:30 Subjective/Events-last exam Pt states that he is feeling better today than yesterday. He started pass "a lot" of flatus yesterday, but no BM. Pt states that he is ready to try solid foods. Denies nausea, vomiting, abdominal pain, chest pain, SOA, fever, cough, dysuria. Review of Systems General: No Chills, No Night Sweats HEENT: No Head Aches, No Sinus Congestion Pulmonary: No Dyspnea, No Cough Cardiovascular: No: Chest Pain, Palpitations Gastrointestinal: No: Nausea, Vomiting Genitourinary: No Dysuria, No Frequency Musculoskeletal: No: neck pain, shoulder pain Neurological: No: Weakness, Numbness Objective Exam Vital Signs Date Time Temp Pulse Resp B/P (MAP) Pulse Ox O2 Delivery O2 Flow Rate FiO2 03/24/23 08:10 Room Air 03/24/23 07:36 36.5 78 20 145/91 (109) 94 Room Air 03/24/23 03:01 37.0 81 18 140/82 (101) 94 Room Air 03/23/23 23:39 37.1 88 18 144/85 (104) 94 03/23/23 20:55 Room Air 03/23/23 19:49 37.0 89 17 125/84 (98) 93 Room Air 03/23/23 16:07 36.8 103 18 147/89 (108) 92 Room Air 03/23/23 12:00 36.7 93 20 134/75 (94) 93 Room Air I & O 03/24/23 07:00 Intake Total 1310 ml Output Total 1525 ml Balance -215 ml Capillary Refill : Less Than 3 Seconds General Appearance: No Apparent Distress, WD/WN HEENT: PERRL/EOMI, Normal ENT Inspection Neck: Full Range of Motion Respiratory: Chest Non Tender, No Accessory Muscle Use, No Respiratory Distress Cardiovascular: Regular Rate, Rhythm, No JVD Peripheral Pulses: 2+ Dorsalis Pedis (R), 2+ Left Dors-Pedis (L), 2+ Radial Pulses (R), 2+ Radial Pulses (L) Gastrointestinal: soft, tenderness (pain localized to incision, incision appears to be healing well, intact, no drainage, no signs of infectino) Extremity: Normal Capillary Refill, Non Tender Neurologic/Psychiatric: Alert, Oriented x3 Skin: Normal Color, Warm/Dry Lymphatic: No Adenopathy Assessment/Plan Assessment/Plan Assessment/Plan incarcerated possible strangulated incisional hernia strangulated incisional hernia containing small bowel s/p lap to open strangulated incisional hernia primary repair with small bowel resection periumbilical abdominal pain nausea and vomiting. advance diet to solid foods Iv fluids Pain medication Ambulate as much as possible Use incentive spirometer Zofran PRN SCD's and ambulation for dvt prophylaxis pepcid gi prophylaxis lovenox JAMIE GORDON DO 03/24/232119: Subjective Subjective/Events-last exam Passing flatus, no bm. Feeling better. Tolerating diet. Pain better, but still having times where increased. Ambulating. Denies n/v fever sweats chills shortness of breath or chest pain. Concerned about going home. Objective Exam General Appearance: No Apparent Distress, WD/WN HEENT: PERRL/EOMI, Normal ENT Inspection Neck: Full Range of Motion Respiratory: Chest Non Tender, No Accessory Muscle Use, No Respiratory Distress Cardiovascular: Regular Rate, Rhythm, No JVD Gastrointestinal: soft, tenderness (pain localized to incision, incision appears to be healing well, intact, no drainage, no signs of infectino) Extremity: Normal Capillary Refill, Non Tender Neurologic/Psychiatric: Alert, Oriented x3 Skin: Normal Color, Warm/Dry Lymphatic: No Adenopathy Assessment/Plan Assessment/Plan Assessment/Plan incarcerated possible strangulated incisional hernia strangulated incisional hernia containing small bowel s/p lap to open strangulated incisional hernia primary repair with small bowel resection due to ischemic bowel periumbilical abdominal pain nausea and vomiting. advance diet as tolerates Iv fluids Pain medication Ambulate as much as possible Use incentive spirometer Zofran PRN SCD's and ambulation for dvt prophylaxis pepcid gi prophylaxis lovenox home soon Supervisory-Addendum Brief Verification & Attestation Participated in pt care: history, MDM, physical Personally performed: exam, history, MDM, supervision of care Care discussed with: Medical Student Procedures: n/a Results interpretation: Verified all documentation Verification and Attestation of Medical Student E/M Service A medical student performed and documented this service in my presence. I reviewed and verified all information documented by the medical student and made modifications to such information, when appropriate. I personally performed the physical exam and medical decision making. Jamie Gordon, Mar 24, 2023,21:20 ANDRIY DANIELS Mar 24, 2023 08:21 JAMIE GORDON DO Mar 24, 2023 21:20
[2023-03-24] MEDS: ENOXAPARIN 40 MG/0.4 ML SYRINGE SC SCH (09:15)
[2023-03-24 11:20] VITALS: BP 119/80
[2023-03-24] MEDS: LACTATED RINGERS 1,000 ML 1,000 ML IV SCH (12:32)
[2023-03-24 16:11] VITALS: BP 134/78
[2023-03-24 19:45] VITALS: BP 138/78
[2023-03-24] MEDS: DOCUSATE SODIUM 100 MG CAPSULE PO SCH (20:12)
[2023-03-24 23:32] VITALS: BP 129/72
[2023-03-25] MEDS: HYDROcodone/ACETAMINOPHEN 5 MG/325 MG TABLET PO PRN ×3 (03:47→13:06)
[2023-03-25 03:48] VITALS: BP 145/90
[2023-03-25] MEDS: LACTATED RINGERS 1,000 ML 1,000 ML IV SCH (05:40)
--- NOTE | 2023-03-25 07:09 | Progress Note - Surgery ---
ANDRIY DANIELS 03/25/23 0709: Subjective Date Seen by a Provider: Mar 25, 2023 Time Seen by a Provider: 06:35 Subjective/Events-last exam Pt is having RUQ abdominal pain that is worse with movement and breathing. Feeling well overall. Still having flatus, but no BM. Tolerating regular diet. No fever, nausea, vomiting, chest pain, SOA, dysuria. Review of Systems General: No Chills, No Night Sweats HEENT: No Head Aches, No Visual Changes Pulmonary: No Dyspnea, No Cough Cardiovascular: No: Chest Pain, Palpitations Gastrointestinal: Abdominal Pain (RUQ); No: Nausea, Vomiting Genitourinary: No Dysuria, No Frequency Musculoskeletal: No: neck pain, shoulder pain Neurological: No: Weakness, Numbness Objective Exam Vital Signs Date Time Temp Pulse Resp B/P (MAP) Pulse Ox O2 Delivery O2 Flow Rate FiO2 03/25/23 03:48 36.0 81 18 145/90 (108) 94 Room Air 03/24/23 23:32 36.5 75 18 129/72 (91) 94 Room Air 03/24/23 20:45 Room Air 03/24/23 19:45 37.4 86 18 138/78 (98) 91 Room Air 03/24/23 16:11 37.1 78 18 134/78 (96) 93 Room Air 03/24/23 11:20 36.4 87 20 119/80 (93) 95 Room Air 03/24/23 08:10 Room Air 03/24/23 07:36 36.5 78 20 145/91 (109) 94 Room Air I & O 03/25/23 07:00 Intake Total 1900 ml Output Total 2650 ml Balance -750 ml Capillary Refill : Less Than 3 Seconds General Appearance: No Apparent Distress, WD/WN HEENT: PERRL/EOMI, Normal ENT Inspection Neck: Full Range of Motion Respiratory: Chest Non Tender, No Accessory Muscle Use, No Respiratory Distress Cardiovascular: Regular Rate, Rhythm, No JVD Peripheral Pulses: 2+ Dorsalis Pedis (R), 2+ Left Dors-Pedis (L), 2+ Radial Pulses (R), 2+ Radial Pulses (L) Gastrointestinal: normal bowel sounds, guarding (voluntary guarding RUQ), tenderness (pain localized to incision, incision appears to be healing well, intact, no drainage, no signs of infection. Pain of RUQ) Extremity: Normal Capillary Refill, Non Tender Neurologic/Psychiatric: Alert, Oriented x3 Skin: Normal Color, Warm/Dry Lymphatic: No Adenopathy Assessment/Plan Assessment/Plan Assessment/Plan incarcerated possible strangulated incisional hernia strangulated incisional hernia containing small bowel s/p lap to open strangulated incisional hernia primary repair with small bowel resection due to ischemic bowel periumbilical abdominal pain nausea and vomiting. advance diet as tolerates Iv fluids Pain medication Ambulate as much as possible Use incentive spirometer Zofran PRN SCD's and ambulation for dvt prophylaxis pepcid gi prophylaxis lovenox Discharge to home today JAMIE GORDON DO 03/25/23 1356: Subjective Subjective/Events-last exam Patient with some abdominal wall/musculoskeletal pain RUQ. Passing flatus. Tolerating diet. Denies any other complaints. Ambulating without difficulty. Denies n/v fever sweats chills shortness of breath or chest pain. Objective Exam General Appearance: No Apparent Distress, WD/WN HEENT: PERRL/EOMI, Normal ENT Inspection Neck: Full Range of Motion, Non Tender Respiratory: Chest Non Tender, No Accessory Muscle Use, No Respiratory Distress Cardiovascular: Regular Rate, Rhythm, No JVD Gastrointestinal: No guarding (voluntary guarding RUQ); tenderness (pain localized to incision, incision appears to be healing well, intact, no drainage, no signs of infection. Minimal pain of RUQ) Extremity: Normal Capillary Refill, Non Tender Neurologic/Psychiatric: Alert, Oriented x3 Skin: Normal Color, Warm/Dry Lymphatic: No Adenopathy Assessment/Plan Assessment/Plan Assessment/Plan incarcerated possible strangulated incisional hernia strangulated incisional hernia containing small bowel s/p lap to open strangulated incisional hernia primary repair with small bowel resection due to ischemic bowel periumbilical abdominal pain nausea and vomiting. diet as tolerates Iv fluids Pain medication Ambulate as much as possible Use incentive spirometer Zofran PRN SCD's and ambulation for dvt prophylaxis pepcid gi prophylaxis lovenox Discharge to home today Supervisory-Addendum Brief Verification & Attestation Participated in pt care: history, MDM, physical Personally performed: exam, history, MDM, supervision of care Care discussed with: Medical Student Procedures: n/a Results interpretation: Verified all documentation Verification and Attestation of Medical Student E/M Service A medical student performed and documented this service in my presence. I reviewed and verified all information documented by the medical student and made modifications to such information, when appropriate. I personally performed the physical exam and medical decision making. Jamie Gordon, Mar 25, 2023,13:56 ANDRIY DANIELS Mar 25, 2023 07:09 JAMIE GORDON DO Mar 25, 2023 13:56
[2023-03-25] MEDS: FAMOTIDINE INJ 20MG/2ML VIAL IVP SCH (08:03)
[2023-03-25] MEDS: DOCUSATE SODIUM 100 MG CAPSULE PO SCH (08:03)
[2023-03-25] MEDS: morphine INJ 4 MG/ML 1 ML (VIAL/SYRINGE) IVP PRN ×2 (08:04)
[2023-03-25 08:05] VITALS: BP 148/92
[2023-03-25] MEDS ORDERED: DOCU-143 PO (08:41)
[2023-03-25] MEDS ORDERED: ACHD5005 PO (08:41)
--- NOTE | 2023-03-25 08:43 | Discharge Inst-Simple/Standard ---
Discharge Inst-Standard Discharge Medications New, Converted or Re-Newed RX: Transmitted to Pharmacy Patient Instructions/Follow Up Plan of Care/Instructions/FU: 2 weeks Heidi Activity as Tolerated: No Discharge Diet: Regular Diet Other Inst to Patient Follow up Appt: Make appointment for 2 week. Instructions: No lifting greater than 10 pounds. No strenuous activity. May shower in 24 hours, no tub bath or soaking. Use incentive spirometer at home as directed. No Smoking Skin/Wound Care: You have akanksha at incisions. Keep clean and dry. Symptoms to Report: Appetite Changes, Extremity Discoloration, Numbness/Tingling, Swelling Increased, Bleeding Excessive, Eyesight Changes, Pain Increased, Urine Color Change, Constipation(Persistent), Fever over 101 degree F, Pain/Pressure in chest, Urinating Difficulty, Cough Up/Vomit Blood, Heart Beat Irreg/Pounding, Pain/Pressure in jaw, Vaginal Bleeding Increase, Cramps in feet or legs, Lightheadedness, Pain/Pressure in shoulder, Diarrhea(Persistent), Memory Changes Suddenly, Questions/Concerns, Weight gain consecutive days, Dizziness/Fainting, Nausea/Vomiting, Shortness of Breath, Weight gain over 2 pounds If questions or concerns contact your physician Or seek help at emergency department. JAMIE LOPEZ DO Mar 25, 2023 08:43
[2023-03-25] MEDS: ENOXAPARIN 40 MG/0.4 ML SYRINGE SC SCH (10:27)
[2023-03-25 11:14] VITALS: BP 153/90
[2023-03-25 15:15] VITALS: BP 153/90
== END 2023-03-25 15:15 | disposition home or self-care (01) | DRG 331 ==
LOC: EDUNIT# 16:50 → ER 16:52 → SDC 17:54 → 4TH 21:01
PROVIDERS: ADMIT Surgery; ATTEND Surgery
PROC: 0DBA0ZZ Excision of Jejunum, Open Approach (ICD-10-PCS; 2023-03-19)
PROC: 0WJF4ZZ Inspection of Abdominal Wall, Percutaneous Endoscopic Approach (ICD-10-PCS; 2023-03-19)
PROC: 0WQF0ZZ Repair Abdominal Wall, Open Approach (ICD-10-PCS; principal; 2023-03-19 19:00)
DX: K43.0 Incisional hernia with obstruction, without gangrene (principal); Z79.899 Other long term (current) drug therapy; Z79.1 Long term (current) use of non-steroidal anti-inflammatories (NSAID); Z79.52 Long term (current) use of systemic steroids; Z88.0 Allergy status to penicillin
CPT/HCPCS: 36415; 80048; 80053; 83690; 83735; 85025; 85027; 93005; 94664; 94760; 96361; 96374; 96376